=== PATIENT | female | born 2000 | race African-American/Black ===

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

== ENCOUNTER 2022-06-14 12:13 | Emergency (ER) | payer MEDICAID ==
[~2022-06-14] VITALS: Ht 165 cm; Wt 51.2 kg
[~2022-06-14 12:13] MED LIST changes: +ACHD5005 PO; +CEPH500T PO
[2022-06-14 12:59] VITALS: BP 112/67
== END 2022-06-14 14:43 | disposition left against medical advice (07) ==
LOC: EDUNIT# 12:13 → ER 12:16
DX: O26.891 Other specified pregnancy related conditions, first trimester (principal); R10.9 Unspecified abdominal pain; Z3A.01 Less than 8 weeks gestation of pregnancy; Z28.310 Unvaccinated for COVID-19

== ENCOUNTER 2023-01-13 13:56 | Outpatient (CLI) | payer MEDICAID ==
[~2023-01-13] VITALS: Ht 165.1 cm; Wt 71.2 kg
[2023-01-13 14:15] VITALS: BP 136/62
[2023-01-13 14:26] LABS: BILIRUBIN,URINE NEGATIVE (NEGATIVE); CLARITY,URINE CLEAR; COLOR,URINE YELLOW; GLUCOSE, URINE (UA) NEGATIVE (NEGATIVE); KETONES,URINE NEGATIVE (NEGATIVE); LEUKOCYTE ESTERASE ,URINE 1+ (NEGATIVE); NITRITE,URINE NEGATIVE (NEGATIVE); PH,URINE 6.5 (5-9); PROTEIN,URINE NEGATIVE (NEGATIVE)
[2023-01-13 14:38] LABS: BACTERIA,URINE NEGATIVE /HPF; WBC,URINE RARE /HPF
[2023-01-13 14:50] VITALS: BP 131/72
[2023-01-13] MEDS ORDERED: hydrOXYzine (VISTARIL/ATARAX) 25 MG capsule/tablet PO ONE (15:00)
[2023-01-13] MEDS ORDERED: ACETAMINOPHEN 500 MG TAB (TYLENOL) PO ONE (15:00)
[2023-01-13 16:50] VITALS: BP 121/72
[2023-01-13] MEDS ORDERED: BUTORPHANOL INJ 2 MG/ML (STADOL) VIAL IM ONE (17:00)
== END 2023-01-13 18:00 | disposition home or self-care (01) ==
LOC: WSo 13:56 → LDRP 13:57 → WSo 18:00
PROVIDERS: ATTEND Family Medicine
DX: O62.9 Abnormality of forces of labor, unspecified (principal); Z3A.37 37 weeks gestation of pregnancy
CPT/HCPCS: 81000

== ENCOUNTER 2023-01-19 14:52 | Outpatient (CLI) | payer MEDICAID ==
[~2023-01-19] VITALS: Ht 165.1 cm; Wt 71.2 kg
[2023-01-19 15:05] VITALS: BP 146/76
[2023-01-19 15:59] LABS: BILIRUBIN,URINE NEGATIVE (NEGATIVE); CLARITY,URINE CLEAR; COLOR,URINE YELLOW; GLUCOSE, URINE (UA) NEGATIVE (NEGATIVE); KETONES,URINE NEGATIVE (NEGATIVE); LEUKOCYTE ESTERASE ,URINE 2+ (NEGATIVE); NITRITE,URINE NEGATIVE (NEGATIVE); PROTEIN,URINE NEGATIVE (NEGATIVE)
[2023-01-19 16:00] VITALS: BP 146/76
[2023-01-19 16:08] LABS: AMORPHOUS SEDIMENT,UR FEW AMOR URATES /LPF; BACTERIA,URINE FEW /HPF; SQUAMOUS EPITHELIAL CELL,UR 0-2 /HPF
[2023-01-19 16:30] VITALS: BP 136/69
[2023-01-19] MEDS ORDERED: NITR100C PO (17:00)
--- NOTE | 2023-01-21 09:23 | Physician Query-Final Dx ---
STEPHANIE,01/21/23 0923: Clinic Account Progress/Dx Physician Query: Please give diagnosis Please include # weeks gestation Date of Service Jan 19, 2023 at 14:52 LIZA MAZARIEGOS DO 01/22/23 0856: Clinic Account Progress/Dx DIAGNOSIS: Diagnosis 37 wk GA UTI STEPHANIE,JulJan 21, 2023 09:23 LIZA MAZARIEGOS DO Jan 22, 2023 08:56
== END 2023-01-19 17:05 | disposition home or self-care (01) ==
LOC: WSo 14:52 → LDRP 14:54 → WSo 17:05
PROVIDERS: ATTEND Family Medicine
DX: O23.43 Unspecified infection of urinary tract in pregnancy, third trimester (principal); Z3A.37 37 weeks gestation of pregnancy
CPT/HCPCS: 81000; 84112; 87077; 87088; G0463; 99213

== ENCOUNTER 2023-01-27 21:47 | Inpatient (IN) | payer MEDICAID ==
[~2023-01-27] VITALS: Ht 165.1 cm; Wt 70.1 kg
[2023-01-27] VITALS (14 sets, daily range): BP systolic 132–159; BP diastolic 70–87
[~2023-01-27 21:47] MED LIST changes: +NITR100C PO
[2023-01-27] MEDS ORDERED: D5 LR 1,000 ML IV SOLN 1,000 ML IV ONE (22:14)
[2023-01-27] MEDS ORDERED: OXYTOCIN PRE-MIX DRIP 500 ML IV ONE (22:14)
[2023-01-27] MEDS ORDERED: fentaNYL 2 mcg/ml BUPIVA 0.125 100 ML ONE (22:22)
[2023-01-27 22:30] LABS: BASOPHILS % (AUTO) 0 % (0-10); EOSINOPHILS # (AUTO) 0.1 10^3/uL (0.0-0.3); EOSINOPHILS % (AUTO) 1 % (0-10); HEMATOCRIT 29 % (35-52); HEMOGLOBIN 9.1 g/dL (11.5-16.0); LYMPHOCYTES # (AUTO) 2.1 10^3/uL (1.0-4.0); LYMPHOCYTES % (AUTO) 20 % (12-44); MEAN CORPUSCULAR HEMOGLOBIN 23 pg (25-34); MEAN CORPUSCULAR HGB CONC 31 g/dL (32-36); MEAN CORPUSCULAR VOLUME 73 fL (80-99); MEAN PLATELET VOLUME 9.6 fL (9.0-12.2); MONOCYTES # (AUTO) 0.8 10^3/uL (0.0-1.0); MONOCYTES % (AUTO) 8 % (0-12); NEUTROPHILS # (AUTO) 7.3 10^3/uL (1.8-7.8); NEUTROPHILS % (AUTO) 70 % (42-75); PLATELET COUNT 304 10^3/uL (130-400); WHITE BLOOD COUNT 10.5 10^3/uL (4.3-11.0)
[2023-01-27] MEDS ORDERED: LIDOCAINE/EPI 2% 1:200,00 (XYLOCAINE) 20 ML VIAL INJ PRN (22:30)
[2023-01-27] MEDS ORDERED: MEPIVACAINE (CARBOCAINE) 2% 50 ML VIAL INJ PRN (22:30)
[2023-01-27] MEDS ORDERED: D5 LR 1,000 ML IV SOLN 1,000 ML IV SCH (22:30)
--- NOTE | 2023-01-27 22:54 | History & Physical-OB ---
OB - Chief Complaint & HPI Date/Time Date of Admission: Date of Admission: Date seen by a Provider: Jan 28, 2023 Time Seen by a Provider: 01:15 Chief Complaint/History OB-Reason for Admission/Chief: Onset of Labor Hx : 2 Hx Para: 1 Expected Date of Delivery: Feb 03, 2023 Gestational Age in Weeks: 39 Gestational Age in Days: 0 Admission Nurse Assessment Rev: Yes Allergies and Home Medications Allergies Coded Allergies: No Known Drug Allergies (Unverified , 12/02/19) Patient Home Medication List Home Medication List Reviewed: Yes OB - History Hx of Present Care: Yes Ultrasounds: Normal mid trimester US Obstetrical Complications: None Medical Complications: None Patient Past Medical History no chronic medical problems Social History/Family History 2nd Hand Smoke Exposure: No Immunizations First/Initial COVID19 Vaccine: NO Second COVID19 Vaccination: NO Third COVID19 Vaccination Date: NO Tetanus Booster (TDap): Less than 5yrs OB - Admission Exam Physical Exam HEENT: Moist Membranes Heart: Rhythm Normal Lungs: Clear Abdomen: Gravid Cervical Dilatation: 7cm (on presentation) Effacement: 75% Station: -1 Membranes: Intact Accelerations: Accelerations Present Mcfp Variability: Average (6-25) Contractions on Admission: < 5 Minutes Apart Intensity: Moderate Labs Laboratory Tests Test 01/27/23 22:10 Range/Units White Blood Count 10.5 4.3-11.0 10^3/uL Red Blood Count 3.98 3.80-5.11 10^6/uL Hemoglobin 9.1 L 11.5-16.0 g/dL Hematocrit 29 L 35-52 % Mean Corpuscular Volume 73 L 80-99 fL Mean Corpuscular Hemoglobin 23 L 25-34 pg Mean Corpuscular Hemoglobin Concent 31 L 32-36 g/dL Red Cell Distribution Width 16.5 H 10.0-14.5 % Platelet Count 304 130-400 10^3/uL Mean Platelet Volume 9.6 9.0-12.2 fL Immature Granulocyte % (Auto) 1 % Neutrophils (%) (Auto) 70 42-75 % Lymphocytes (%) (Auto) 20 12-44 % Monocytes (%) (Auto) 8 0-12 % Eosinophils (%) (Auto) 1 0-10 % Basophils (%) (Auto) 0 0-10 % Neutrophils # (Auto) 7.3 1.8-7.8 10^3/uL Lymphocytes # (Auto) 2.1 1.0-4.0 10^3/uL Monocytes # (Auto) 0.8 0.0-1.0 10^3/uL Eosinophils # (Auto) 0.1 0.0-0.3 10^3/uL Basophils # (Auto) 0.0 0.0-0.1 10^3/uL Immature Granulocyte # (Auto) 0.1 0.0-0.1 10^3/uL OB - Assessment/Plan/Diagnosis Assessment Assessment: active labor Admission Dx 1. IUP at term 39 weeks in active labor Admission Status: Inpatient Order (span 2 midnights) Reason for Inpatient Admission: L&D Plan Plan: Expectant Management Induction Method: AROM Other Plan -Patient desires epidural CECILLE MERINO MD Jan 27, 2023 22:54
[2023-01-27] MEDS ORDERED: ONDANSETRON 4 MG/2 ML (SDV) Z0FRAN IV PRN (23:30)
[2023-01-27] MEDS ORDERED: diphenhydrAMINE INJ 50 MG/ML VIAL IV PRN (23:30)
[2023-01-27] MEDS ORDERED: NALOXONE 0.4 MG/ML 1 ML (NARCAN) VIAL IV PRN ×2 (23:30)
[2023-01-27] MEDS ORDERED: fentaNYL 2 mcg/ml BUPIVA 0.125 100 ML EPI SCH (23:30)
[2023-01-27] MEDS ORDERED: LACTATED RINGERS 1,000 ML IV SCH (23:30)
[2023-01-27] MEDS ORDERED: METOCLOPRAMIDE INJ 10 MG/2 ML (REGLAN) IV PRN (23:30)
[2023-01-28] VITALS (8 sets, daily range): BP systolic 120–138; BP diastolic 59–85
--- NOTE | 2023-01-28 02:05 | OB Labor & Delivery Record ---
L&D History Date of Service Date of Service: Jan 28, 2023 History Expected Date of Delivery: Feb 03, 2023 Gestational Age in Weeks: 39 Hx : 2 Hx Para: 2 Complications Events: Routine care Operative Indications (Cesarea: N/A-Vaginal Delivery Intrapartal Events: None L&D Stage1 Stage One Onset of Labor - Date: Jan 27, 2023 Onset of Labor - Time: 20:00 Monitors and Tracing Monitor Mode: External Heart Rate: 140 Monitor Accelerations: Uniform Monitor Decelerations: Variable Station: -2 Nursing Home Variability: Average (6-10) Short Term Variability: Present Presentation: Vertex Vital Signs VS - Last 72 Hours, by Label 01/27/23 01/27/23 01/27/23 01/27/23 23:00 23:02 23:04 23:05 Temp 36.9 37.0 Pulse 101 94 100 92 Resp 20 20 20 20 B/P (MAP) 149/81 (103) 139/83 (101) 141/70 (93) Pulse Ox 100 99 99 99 O2 Delivery Room Air Room Air Room Air Room Air 01/27/23 01/27/23 01/27/23 01/27/23 23:07 23:09 23:12 23:24 Pulse 90 110 103 92 Resp 20 20 20 20 B/P (MAP) 139/83 (101) 141/81 (101) 152/70 (97) 152/70 (97) Pulse Ox 100 99 100 99 O2 Delivery Room Air Room Air Room Air Room Air 01/27/23 01/27/23 01/27/23 01/27/23 23:30 23:32 23:34 23:45 Pulse 88 83 84 102 Resp 20 20 20 20 B/P (MAP) 154/78 (103) 147/72 (97) 159/80 (106) 155/85 (108) Pulse Ox 100 100 100 100 O2 Delivery Room Air Room Air Room Air Room Air 01/27/23 01/27/23 01/28/23 23:56 23:57 00:16 Temp 36.8 Pulse 96 90 83 Resp 20 20 20 B/P (MAP) 156/87 (110) 139/83 (101) 138/85 (102) Pulse Ox 100 100 100 O2 Delivery Room Air Room Air Room Air Signs of Distress by FHT Signs of Distress no Rupture of Membranes Spontaneous Ruture of Membrane: Yes Amniotic Membrane Rupture Time: 232 Amniotic Membrane Fluid Desc.: Clear Vaginal Bleeding Description: None Induction/Anesthesia Epidural Cath Placement - Time: 2302 L&D Stage2 Stage Two Stage II Date: Jan 28, 2023 Stage II Time: 01:24 Monitors and Tracing Monitor Mode: External Heart Rate: 140 Monitor Accelerations: Uniform Monitor Decelerations: Variable Nursing Home Variability: Average (6-10) Short Term Variability: Present Position: Left Occiput Anterior Presentation: Vertex Signs of Distress by FHT Signs of Distress no Cord Descript/Complications Cord Vessel Description: 3 Vessels Delivery Type Infant Delivery Method: Spontaneous Vaginal Anterior Shoulder: Left Episiotomy/Perineal Laceration Laceraction(s)/Extensions: Yes Episiotomy Description: 1st degree Sutures Used: Vicryl Condition of Delivery 1 minute Comment: 8 5 minute Comment: 9 Condition of Condition of : Living Exam: No Observed Abnormalities Resuscitation Resuscitation: N/A - Spontaneous Resp L&D Stage3 Stage Three Stage III Date: Jan 28, 2023 Stage III Time: 01:30 Placenta Delivery Placenta Delivery: Spontaneous Delivery Summary Summary Estimated blood loss (mL): 400 Condition of Delivery Examined: Cervix Examined Post Hemorrhage: No Intervention Required uterine massage CECILLE MERINO MD Jan 28, 2023 02:05
[2023-01-28] MEDS ORDERED: Tetanus/Diphtheria/Pertussis (Acell) ADULT Vaccine 0.5 ML IM ONE (02:15)
[2023-01-28] MEDS ORDERED: BENZOCAINE/MENTHOL (DERMOPLAST) 56 ML CAN TP PRN (02:15)
[2023-01-28] MEDS ORDERED: MEASLES,MUMPS,RUBELLA 1 EA INJ SQ ONE (02:15)
[2023-01-28] MEDS ORDERED: NALOXONE 0.4 MG/ML 1 ML (NARCAN) VIAL IV PRN (02:15)
[2023-01-28] MEDS ORDERED: ACETAMINOPHEN 500 MG TABLET PO SCH (02:15)
[2023-01-28] MEDS ORDERED: OXYTOCIN PRE-MIX DRIP 500 ML IV SCH (02:15)
[2023-01-28] MEDS ORDERED: WITCH HAZEL(TUCKS) 40 EA JAR TOP PRN (02:15)
[2023-01-28] MEDS ORDERED: LIDOCAINE/EPI 2% 1:200,00 (XYLOCAINE) 20 ML VIAL ONE (05:25)
[2023-01-28] MEDS ORDERED: CATHETER FLUSH 10 ML SYR IV SCH (06:00)
[2023-01-28] MEDS ORDERED: SERT-412 PO (06:10)
[2023-01-28] MEDS: DOCUSATE SODIUM 100 MG CAPSULE PO SCH ×2 (08:37→21:57)
[2023-01-28] MEDS: IBUPROFEN 600 MG (MOTRIN) TAB PO SCH ×3 (08:39→21:57)
[2023-01-29 04:01] VITALS: BP 123/68
[2023-01-29] MEDS: IBUPROFEN 600 MG (MOTRIN) TAB PO SCH (04:04)
[2023-01-29 05:47] LABS: BASOPHILS # (AUTO) 0.1 10^3/uL (0.0-0.1); BASOPHILS % (AUTO) 1 % (0-10); EOSINOPHILS # (AUTO) 0.2 10^3/uL (0.0-0.3); EOSINOPHILS % (AUTO) 2 % (0-10); HEMATOCRIT 23 % (35-52); HEMOGLOBIN 7.1 g/dL (11.5-16.0); LYMPHOCYTES # (AUTO) 2.8 10^3/uL (1.0-4.0); LYMPHOCYTES % (AUTO) 24 % (12-44); MEAN CORPUSCULAR HEMOGLOBIN 23 pg (25-34); MEAN CORPUSCULAR HGB CONC 31 g/dL (32-36); MEAN CORPUSCULAR VOLUME 74 fL (80-99); MEAN PLATELET VOLUME 9.4 fL (9.0-12.2); MONOCYTES # (AUTO) 0.7 10^3/uL (0.0-1.0); MONOCYTES % (AUTO) 6 % (0-12); NEUTROPHILS % (AUTO) 68 % (42-75); PLATELET COUNT 232 10^3/uL (130-400); WHITE BLOOD COUNT 11.9 10^3/uL (4.3-11.0)
--- NOTE | 2023-01-29 07:13 | Discharge Summary ---
Diagnosis/Chief Complaint Date of Admission Jan 27, 2023 at 21:50 Date of Discharge Discharge Summary-OBS Procedures None. Discharge Physical Examination Allergies: Coded Allergies: No Known Drug Allergies (Unverified , 12/02/19) Vitals & I&Os Vital Sign - Last 12Hours Date Time Temp Pulse Resp B/P (MAP) Pulse Ox O2 Delivery O2 Flow Rate FiO2 01/29/23 04:01 36.4 76 16 123/68 (86) 99 Room Air Hospital Course Labs Laboratory Tests 01/29/23 05:37: White Blood Count 11.9H, Red Blood Count 3.10L, Hemoglobin 7.1#L, Hematocrit 23L , Mean Corpuscular Volume 74L, Mean Corpuscular Hemoglobin 23L, Mean Corpuscular Hemoglobin Concent 31L, Red Cell Distribution Width 16.7H, Platelet Count 232, Mean Platelet Volume 9.4, Immature Granulocyte % (Auto) 1, Neutrophils (%) (Auto) 68, Lymphocytes (%) (Auto) 24, Monocytes (%) (Auto) 6, Eosinophils (%) (Auto) 2, Basophils (%) (Auto) 1, Neutrophils # (Auto) 8.0H, Lymphocytes # (Auto) 2.8, Monocytes # (Auto) 0.7, Eosinophils # (Auto) 0.2, Basophils # (Auto) 0.1, Immature Granulocyte # (Auto) 0.1 Discharge Instructions to patient/family Please see electronic discharge instructions given to patient. Discharge Medications Reviewed and agree with Discharge Medication list on patient's Discharge Instruction sheet CECILLE MERINO MD Jan 29, 2023 07:13
--- NOTE | 2023-01-29 07:15 | Discharge Inst-Women's Service ---
Discharge Inst-Women's Serv Depart Medication/Instructions New, Converted or Re-Newed RX: Other Instructions May take ibuprofen 200 mg tablets [id number] 2 or 3 every 6 hours if needed for cramps. Problems Reviewed?: Yes Consults/Follow Up Additional Follow Up: Yes (Dr. Merino in [address] [facility]) Activity Activity: Activity as Tolerated Driving Instructions: No Driving for 1 Week Nothing Inside Vagina: No [place] (For 6 weeks) Diet Discharge Diet: Regular Diet Return to The Hospital For: As below Symptoms to Report to : Swelling Increased, Bleeding Excessive, Fever Over 101 Degrees F, Vaginal Discharge Foul For Any Problems or Questions: Contact Your Physician CECILLE MERINO MD Jan 29, 2023 07:15
[2023-01-29 08:15] VITALS: BP 112/64
[2023-01-29] MEDS: DOCUSATE SODIUM 100 MG CAPSULE PO SCH (08:15)
[2023-01-29 10:00] VITALS: BP 112/64
== END 2023-01-29 10:00 | disposition home or self-care (01) | DRG 807 ==
LOC: LDRP 21:47 → WSo 21:47 → LDRP 21:50 → WSo 21:50 → LDRP 01-28 03:30
PROVIDERS: ADMIT Family Medicine; ATTEND Family Medicine
PROC: 10907ZC Drainage of Amniotic Fluid, Therapeutic from Products of Conception, Via Natural or Artificial Opening (ICD-10-PCS; 2023-01-27)
PROC: 10E0XZZ Delivery of Products of Conception, External Approach (ICD-10-PCS; principal; 2023-01-28)
PROC: 0HQ9XZZ Repair Perineum Skin, External Approach (ICD-10-PCS; 2023-01-28)
DX: O70.0 First degree perineal laceration during delivery (principal); Z37.0 Single live birth; Z3A.39 39 weeks gestation of pregnancy; Z28.310 Unvaccinated for COVID-19
CPT/HCPCS: 36415; 85025; 86780; 86850; 86900; 86901